=== PATIENT | male | born 1965 ===

== ENCOUNTER → 2017-07-04 | Outpatient (CLI) | payer MEDICARE, MEDICAID ==
[2014-07-21 14:17] VITALS: BMI 47.2
[~2017-07-04] MED LIST: ALBU8.5H IH; CEPH-13 PO; CYCL10TA29 PO; GLIP-152 PO; HYDR-385 PO; HYDR-4305 PO; INDO75CA PO; METF-420 PO; NAPR-724 PO; PROP80CA3 PO; TRAZ-163 PO
[2017-07-04 10:07] LABS: LDL CHOLESTEROL 108 mg/dl
== END ==
LOC: LAB 09:04
PROVIDERS: ATTEND Nurse Practitioner Psychiatric/Mental Health
DX: E13.65 Other specified diabetes mellitus with hyperglycemia (principal); E78.5 Hyperlipidemia, unspecified
CPT/HCPCS: 36415; 82040; 82247; 82310; 82374; 82435; 82465; 82565; 82947; 83036; 83718; 84075; 84132; 84155; 84295; 84450; 84460; 84478; 84520

== ENCOUNTER 2017-07-24 03:34 | Day surgery (SDC) | payer MEDICARE, MEDICAID ==
[2014-07-21 14:17] VITALS: Ht 182.9 cm; Wt 153.8 kg
[~2017-07-24] VITALS: Ht 182.9 cm; Wt 153.8 kg
[~2017-07-24 03:34] MED LIST changes: -NAPR-724 PO; +NAPR500T31 PO
--- NOTE | 2017-07-24 06:37 | Post Operative Progress Note ---
Post Operative Progress Note Date: Jul 24, 2017 Time: 10:19 Surgeon: erika Anesthesia: dr meyers Pre-Op Diagnosis: screening colonoscopy Post-Op Diagnosis: normal colonoscopy Procedure(s): colonoscopy JUSTIN MITCHELL MD Jul 24, 2017 06:37
--- NOTE | 2017-07-24 06:37 | Short(Outpt) Discharge Summary ---
Discharge Summary Reason for Hosp/Final Diag: (1) Encounter for screening colonoscopy Hospital Course & Plan: colonoscopy was normal Departure Discharge to: Home Discharge Instructions Home Meds Reported Medications Hydrocodone Bit/Acetaminophen (NORCO 10-325 TABLET) 1 Each Tablet, 1 EACH PO Q4- 6H Y for PAIN 07/18/17 Glipizide (GLIPIZIDE) 5 Mg Tablet, 10 MG PO BID 04/13/15 Propranolol HCl (Inderal Xl) 80 Mg Cap.er.24h, 1 CAP PO BID 11/11/14 Metformin Hcl (METFORMIN HCL) 1,000 Mg Tablet, 1 TAB PO BID, TAB 11/11/14 Discontinued Reported Medications Cyclobenzaprine Hcl (CYCLOBENZAPRINE HCL) 10 Mg Tablet, 10 MG PO HS Y for SLEEP , #9 TAB 11/11/14 Discontinued Scripts Naproxen (NAPROXEN) 500 Mg Tablet, 500 MG PO BID for 7 Days, #14 TAB Prov:ISSAC GAN MD 02/16/17 Diet: Regular Activity: As Tolerated JUSTIN MITCHELL MD Jul 24, 2017 06:37
[2017-07-24 07:26] VITALS: BP 142/86
[2017-07-24] MEDS ORDERED: PROPOFOL EMUL(*) 10MG/ML 20 ML 20 ML ONE (07:26)
[2017-07-24] MEDS ORDERED: MIDAZOLAM 2 MG/2 ML VIAL IVP PRN (09:00)
[2017-07-24] MEDS ORDERED: NORMOSOL R SOLN(*) 1000 ML BAG 1,000 ML IV PRN (09:00)
[2017-07-24] MEDS ORDERED: LIDOCAINE/SOD BICARB 8.4% SYR ID ONE (09:00)
[2017-07-24 10:15] VITALS: BP 113/77
[2017-07-24 10:30] VITALS: BP 127/75
[2017-07-24 10:41] VITALS: BP 117/68
[2017-07-24 10:45] VITALS: BP 136/75
--- NOTE | 2017-07-24 15:53 | OPERATIVE REPORT 1 ---
EVENT DATE: July 24, 2017 SURGEON: Mayo Shea MD ANESTHESIOLOGIST: Vinod Miller MD ANESTHESIA: Sedation. PREOPERATIVE DIAGNOSIS Screening colonoscopy. POSTOPERATIVE DIAGNOSIS Normal-appearing colonoscopic examination. DESCRIPTION OF PROCEDURE The patient was placed in the left lateral decubitus position and given intravenous sedation. The rectal exam was unremarkable. A flexible colonoscope was inserted and advanced to the cecum. He had an excellent bowel prep. Ileocecal valve and base of the cecum were identified. The scope was slowly withdrawn. Care was taken to look behind the haustral folds. No abnormalities were noted in the cecum, right colon, transverse, descending, or sigmoid colon. The rectum was normal. The scope was retroflexed, and that appeared to be normal. The patient will require a repeat colonoscopy in 10 years. KALEIGH
== END 2017-07-24 10:55 | disposition home or self-care (01) ==
LOC: OR 03:34
PROVIDERS: ATTEND Surgery
DX: Z12.11 Encounter for screening for malignant neoplasm of colon (principal); E11.9 Type 2 diabetes mellitus without complications
CPT/HCPCS: 00812; 36416; 82948; G0121; J2704

== ENCOUNTER 2017-10-27 00:37 | Emergency (ER) | payer MEDICAID, MEDICARE ==
[2014-07-21 14:17] VITALS: Wt 158.8 kg
[~2017-10-27 00:37] MED LIST changes: -METF-420 PO; +METF-421 PO
--- NOTE | 2017-10-27 00:42 | ER Report ---
History and Physical Time Seen By MD: 00:41 HPI/ROS CHIEF COMPLAINT: Abdominal pain HISTORY OF PRESENT ILLNESS: 52-year-old male presents ambulatory to the ER complaining of severe nausea. He's got right upper quadrant abdominal pain. He ate a cheeseburger at 4 PM and then developed pain shortly thereafter. He's had no fever or chills. He's had no abdominal surgeries previously. Patient notes one episode of diarrhea. He denies dysuria. REVIEW OF SYSTEMS: Respiratory: No cough, no dyspnea. Cardiovascular: No chest pain, no palpitations. Gastrointestinal: As above Musculoskeletal: No back pain. Allergies: Coded Allergies: No Known Drug Allergies (Unverified , 10/27/17) Home Meds Active Scripts Ondansetron Hcl (ZOFRAN) 4 Mg Tablet, 4 MG PO Q6H Y for NAUSEA/VOMITING, #10 Prov:CHARLES SANCHEZ DO 10/27/17 Hydrocodone Bit/Acetaminophen (NORCO 5-325 TABLET) 1 Each Tablet, 1 EACH PO Q4H Y for PAIN, #12 TAB Prov:CHARLES SANCHEZ DO 10/27/17 Reported Medications Propranolol HCl (Inderal Xl) 80 Mg Cap.er.24h 10/27/17 Glipizide (GLIPIZIDE) 5 Mg Tablet, 20 MG PO BID 04/13/15 Metformin Hcl (METFORMIN HCL) 1,000 Mg Tablet, 1 TAB PO BID, TAB 11/11/14 Discontinued Reported Medications Hydrocodone Bit/Acetaminophen (NORCO 10-325 TABLET) 1 Each Tablet, 1 EACH PO Q4- 6H Y for PAIN 07/18/17 Propranolol HCl (Inderal Xl) 80 Mg Cap.er.24h, 1 CAP PO BID 11/11/14 Reviewed Nurses Notes: Yes Old Medical Records Reviewed: Yes Hx Smoking: No Smoking Status: Never Smoker Exposure to Second Hand Smoke?: No Hx Substance Use Disorder: No Hx Alcohol Use: No Constitutional Vital Sign - Last 24 Hours 10/27/17 10/27/17 10/27/17 10/27/17 00:42 00:45 00:55 01:00 Temp 96.8 Pulse 73 73 70 Resp 20 B/P (MAP) 151/74 151/78 (102) Pulse Ox 92 93 93 O2 Delivery Room Air 6/4/18 6/4/18 6/4/18 6/4/18 01:15 01:25 01:35 01:45 Pulse 67 69 68 66 Pulse Ox 91 91 90 90 10/27/17 01:54 Pulse 80 Resp 16 B/P (MAP) 148/89 (108) Pulse Ox 93 O2 Delivery Room Air Physical Exam General Appearance: The patient is alert, has no immediate need for airway protection and no current signs of toxicity. Vital signs stable, afebrile, pulse ox normal HEENT: Pupils equal and round no injection. Oropharynx without redness or exudate, mucous. Membranes are moist Respiratory: Chest is non tender, lungs are clear to auscultation. Cardiac: regular rate and rhythm Gastrointestinal: Abdomen is soft, mild epigastric tenderness, no masses, bowel sounds normal. Musculoskeletal: Neck: Neck is supple and non tender. Extremities have full range of motion and are non tender. Skin: No rashes or lesions. DIFFERENTIAL DIAGNOSIS: After history and physical exam differential diagnosis was considered for abdominal pain including but not limited to appendicitis, cholecystitis, gastritis and urinary tract infection. Medical Decision Making Data Points Result Diagram: 10/27/17 0109 10/27/17 0128 Laboratory Hematology Test 10/27/17 00:42 10/27/17 01:09 10/27/17 01:28 Urine Color Yellow Urine Clarity Clear Urine pH 5.0 pH (4.8-9.5) Urine Specific [place] 1.016 Urine Protein Negative mg/dL (NEGATIVE) Urine Glucose (UA) 500 mg/dL (NEGATIVE) Urine Ketones Trace mg/dL (NEGATIVE) Urine Blood Negative (NEGATIVE) Urine Nitrite Negative (NEGATIVE) Urine Bilirubin Negative (NEGATIVE) Urine Urobilinogen Negative mg/dL (0.2-1.9) Urine Leukocyte Esterase Negative (NEGATIVE) Urine RBC <1 /HPF (0-2/HPF) Urine WBC <1 /HPF (0-5/HPF) Urine Squamous Epithelial Cells Few /LPF (</=FEW) Urine Bacteria Negative /HPF (NONE-FEW) Urine Mucus Few /HPF (NONE-FEW) Red Blood Count 5.77 M/uL (4.00-5.60) Mean Corpuscular Volume 88.3 fL (80.0-96.0) Mean Corpuscular Hemoglobin 30.6 pg (26.0-33.0) Mean Corpuscular Hemoglobin Concent 34.6 g/dL (32.0-36.0) Red Cell Distribution Width 14.4 % (11.5-14.5) Mean Platelet Volume 7.4 fL (7.2-11.1) Neutrophils (%) (Auto) 63.7 % (39.4-72.5) Lymphocytes (%) (Auto) 25.1 % (17.6-49.6) Monocytes (%) (Auto) 8.3 % (4.1-12.4) Eosinophils (%) (Auto) 1.9 % (0.4-6.7) Basophils (%) (Auto) 1.0 % (0.3-1.4) Nucleated RBC Relative Count (auto) 0.2 /100WBC Neutrophils # (Auto) 7.8 K/uL (2.0-7.4) Lymphocytes # (Auto) 3.1 K/uL (1.3-3.6) Monocytes # (Auto) 1.0 K/uL (0.3-1.0) Eosinophils # (Auto) 0.2 K/uL (0.0-0.5) Basophils # (Auto) 0.1 K/uL (0.0-0.1) Nucleated RBC Absolute Count (auto) 0.02 K/uL Sodium Level 137 mmol/L (137-145) Potassium Level 3.9 mmol/L (3.5-5.0) Chloride Level 100 mmol/L (98-107) Carbon Dioxide Level 25 mmol/L (22-30) Blood Urea Nitrogen 19 mg/dl (9-21) Creatinine 0.90 mg/dl (0.66-1.25) Glomerular Filtration Rate Calc > 60.0 Random Glucose 214 mg/dl (75-110) Calcium Level 9.3 mg/dl (8.4-10.2) Total Bilirubin 0.7 mg/dl (0.2-1.3) Aspartate Amino Transf (AST/SGOT) 23 U/L (0-35) Alanine Aminotransferase (ALT/SGPT) 41 U/L (0-56) Alkaline Phosphatase 71 U/L (0-126) Total Protein 6.7 gm/dl (6.3-8.2) Albumin 3.6 g/dl (3.5-5.0) Amylase Level 90 U/L (0-110) Lipase 239 U/L (23-300) Chemistry Test 10/27/17 00:42 10/27/17 01:09 10/27/17 01:28 Urine Color Yellow Urine Clarity Clear Urine pH 5.0 pH (4.8-9.5) Urine Specific [place] 1.016 Urine Protein Negative mg/dL (NEGATIVE) Urine Glucose (UA) 500 mg/dL (NEGATIVE) Urine Ketones Trace mg/dL (NEGATIVE) Urine Blood Negative (NEGATIVE) Urine Nitrite Negative (NEGATIVE) Urine Bilirubin Negative (NEGATIVE) Urine Urobilinogen Negative mg/dL (0.2-1.9) Urine Leukocyte Esterase Negative (NEGATIVE) Urine RBC <1 /HPF (0-2/HPF) Urine WBC <1 /HPF (0-5/HPF) Urine Squamous Epithelial Cells Few /LPF (</=FEW) Urine Bacteria Negative /HPF (NONE-FEW) Urine Mucus Few /HPF (NONE-FEW) White Blood Count 12.2 k/uL (4.5-11.0) Red Blood Count 5.77 M/uL (4.00-5.60) Hemoglobin 17.7 g/dL (14.0-18.0) Hematocrit 51.0 % (42.0-52.0) Mean Corpuscular Volume 88.3 fL (80.0-96.0) Mean Corpuscular Hemoglobin 30.6 pg (26.0-33.0) Mean Corpuscular Hemoglobin Concent 34.6 g/dL (32.0-36.0) Red Cell Distribution Width 14.4 % (11.5-14.5) Platelet Count 196 K/uL (150-450) Mean Platelet Volume 7.4 fL (7.2-11.1) Neutrophils (%) (Auto) 63.7 % (39.4-72.5) Lymphocytes (%) (Auto) 25.1 % (17.6-49.6) Monocytes (%) (Auto) 8.3 % (4.1-12.4) Eosinophils (%) (Auto) 1.9 % (0.4-6.7) Basophils (%) (Auto) 1.0 % (0.3-1.4) Nucleated RBC Relative Count (auto) 0.2 /100WBC Neutrophils # (Auto) 7.8 K/uL (2.0-7.4) Lymphocytes # (Auto) 3.1 K/uL (1.3-3.6) Monocytes # (Auto) 1.0 K/uL (0.3-1.0) Eosinophils # (Auto) 0.2 K/uL (0.0-0.5) Basophils # (Auto) 0.1 K/uL (0.0-0.1) Nucleated RBC Absolute Count (auto) 0.02 K/uL Glomerular Filtration Rate Calc > 60.0 Calcium Level 9.3 mg/dl (8.4-10.2) Total Bilirubin 0.7 mg/dl (0.2-1.3) Aspartate Amino Transf (AST/SGOT) 23 U/L (0-35) Alanine Aminotransferase (ALT/SGPT) 41 U/L (0-56) Alkaline Phosphatase 71 U/L (0-126) Total Protein 6.7 gm/dl (6.3-8.2) Albumin 3.6 g/dl (3.5-5.0) Amylase Level 90 U/L (0-110) Lipase 239 U/L (23-300) Urinalysis Test 10/27/17 00:42 Urine Color Yellow Urine Clarity Clear Urine pH 5.0 pH (4.8-9.5) Urine Specific [place] 1.016 Urine Protein Negative mg/dL (NEGATIVE) Urine Glucose (UA) 500 mg/dL (NEGATIVE) Urine Ketones Trace mg/dL (NEGATIVE) Urine Blood Negative (NEGATIVE) Urine Nitrite Negative (NEGATIVE) Urine Bilirubin Negative (NEGATIVE) Urine Urobilinogen Negative mg/dL (0.2-1.9) Urine Leukocyte Esterase Negative (NEGATIVE) Urine RBC <1 /HPF (0-2/HPF) Urine WBC <1 /HPF (0-5/HPF) Urine Squamous Epithelial Cells Few /LPF (</=FEW) Urine Bacteria Negative /HPF (NONE-FEW) Urine Mucus Few /HPF (NONE-FEW) ED Course/Re-evaluation Clinical Indication for ER IV: Hydration, IV Access ED Course Patient was admitted to an examination room. H&P was done. The differential diagnosis was considered. On clinical examination. Patient has a benign nonsurgical abdomen. He has mild epigastric tenderness. Patient was treated with IV fluid hydration, Zofran and Toradol. He feels better. His nausea resolved. His diagnostic laboratory studies are unremarkable. Patient's advised a clear liquid diet for 24 hours. He is given prescriptions for Lortab and Zofran. Patient advised to follow-up with primary care if unimproved in 3- 5 days. He may need an ultrasound or a HIDA scan. Decision to Disposition Date: Oct 27, 2017 Decision to Disposition Time: 01:51 Depart Departure Latest Vital Signs Vital Signs Date Time Temp Pulse Resp B/P (MAP) Pulse Ox O2 Delivery O2 Flow Rate FiO2 10/27/17 01:54 80 16 148/89 (108) 93 Room Air 10/27/17 00:42 96.8 Impression: Primary Impression: Abdominal pain Additional Impression: Type II diabetes mellitus Condition: Improved Disposition: HOME OR SELF-CARE Referrals: SANCHEZ DOVE APRN (PCP) New Scripts Ondansetron Hcl (ZOFRAN) 4 Mg Tablet 4 MG PO Q6H Y for NAUSEA/VOMITING, #10 Prov: CHARLES SANCHEZ DO 10/27/17 Hydrocodone Bit/Acetaminophen (NORCO 5-325 TABLET) 1 Each Tablet 1 EACH PO Q4H Y for PAIN, #12 TAB Prov: CHARLES SANCHEZ DO 10/27/17 Patient Instructions: Abdominal Pain (ED), Clear Liquid Diet (ED) Additional Instructions: Follow-up with your primary care if unimproved in 3-5 days. You may need an ultrasound gallbladder Problem Qualifiers Primary Impression: Abdominal pain Abdominal location: upper abdomen, unspecified Qualified Codes: R10.10 - Upper abdominal pain, unspecified Additional Impression: Type II diabetes mellitus Diabetes mellitus senior care insulin use: unspecified exterminator insulin use status Diabetes mellitus complication status: without complication Qualified Codes: E11.9 - Type 2 diabetes mellitus without complications CHARLES SANCHEZ DO Oct 27, 2017 00:42
[2017-10-27] MEDS ORDERED: PROP80CA3 (00:49)
[2017-10-27] MEDS ORDERED: NS(*) 0.9% 1000 ML BAG 1,000 ML IV ONE (00:52)
[2017-10-27] MEDS ORDERED: KETOROLAC 30 MG/ML VIAL IVP ONE (00:55)
[2017-10-27] MEDS ORDERED: ONDANSETRON 4 MG/2 ML VIAL IVP ONE (00:55)
[2017-10-27 01:39] LABS: PLATELET COUNT, AUTOMATED 196 K/uL (150-450)
[2017-10-27] MEDS ORDERED: ACET/HYDROC 5/325MG TH ER ONLY 2 TAB/BOTTLE PO ONE (01:50)
[2017-10-27] MEDS ORDERED: ONDANSETRON 4 MG ODT TH SL ONE (01:50)
[2017-10-27] MEDS ORDERED: HYDR-4309 PO (01:53)
[2017-10-27] MEDS ORDERED: ONDA4TAB97 PO (01:53)
[2017-10-27 01:54] VITALS: BP 148/89
== END 2017-10-27 02:08 | disposition home or self-care (01) ==
LOC: ER 00:50
DX: R10.11 Right upper quadrant pain (principal); E11.9 Type 2 diabetes mellitus without complications
CPT/HCPCS: 36415; 81001; 82150; 83690; 85025; 96361; 96374; 96375; 99284; J1885; J2405; J7030; Q0162; 82040; 82247; 82310; 82374; 82435; 82565; 82947; 84075; 84132; 84155; 84295; 84450; 84460; 84520; 99283; S0119

== ENCOUNTER 2017-11-03 11:04 | Emergency (ER) | payer MEDICARE ==
[2014-07-21 14:17] VITALS: Wt 158.8 kg
[~2017-11-03 11:04] MED LIST changes: +HYDR-4309 PO; +ONDA4TAB97 PO; +PROP80CA3
[2017-11-03 11:12] VITALS: BP 153/86
--- NOTE | 2017-11-03 11:16 | ER Report ---
History and Physical Time Seen By MD: 11:13 Hx. of Stated Complaint: Pt reports RUQ side pain. HPI/ROS CHIEF COMPLAINT: Right lower quadrant pain HISTORY OF PRESENT ILLNESS: This is a 52-year-old male who presents to the emergency department for right lower quadrant pain. Patient states that about 4 days ago he developed some right lower quadrant pain, radiating to the lower back. Patient denies dysuria, difficulties with bowel movements. Patient states that the pain has been intermittent, achy with occasional sharp pains. No blood in the urine, no nausea or vomiting. No chest pain or shortness of breath. No rashes. REVIEW OF SYSTEMS: Constitutional: No fever, no chills. Eyes: No discharge. ENT: No sore throat. Cardiovascular: No chest pain, no palpitations. Respiratory: No cough, no shortness of breath. Gastrointestinal: As above. Genitourinary: No hematuria. Musculoskeletal: No back pain. Skin: No rashes. Neurological: No headache. Allergies: Coded Allergies: No Known Drug Allergies (Unverified , 11/03/17) Home Meds Active Scripts Acyclovir (ACYCLOVIR) 800 Mg Tablet, 800 MG PO 5XD for 7 Days, #35 TAB 0 Refills Prov:KRYSTYNA VELÁZQUEZ DRAIN TECHNICIAN-BC 11/03/17 Ondansetron Hcl (ZOFRAN) 4 Mg Tablet, 4 MG PO Q6H Y for NAUSEA/VOMITING, #10 Prov:CHARLES SANCHEZ DO 10/27/17 Hydrocodone Bit/Acetaminophen (NORCO 5-325 TABLET) 1 Each Tablet, 1 EACH PO Q4H Y for PAIN, #12 TAB Prov:CHARLES SANCHEZ DO 10/27/17 Reported Medications Propranolol HCl (Inderal Xl) 80 Mg Cap.er.24h 10/27/17 Glipizide (GLIPIZIDE) 5 Mg Tablet, 20 MG PO BID 04/13/15 Metformin Hcl (METFORMIN HCL) 1,000 Mg Tablet, 1 TAB PO BID, TAB 11/11/14 Discontinued Reported Medications Hydrocodone Bit/Acetaminophen (NORCO 10-325 TABLET) 1 Each Tablet, 1 EACH PO Q4- 6H Y for PAIN 07/18/17 Propranolol HCl (Inderal Xl) 80 Mg Cap.er.24h, 1 CAP PO BID 11/11/14 Past Medical/Surgical History Patient has a past medical and surgical history of hypertension, torn rotator cuff surgery, arthritis, back fracture, neck, knee and ankle injuries, chronic back pain, wears glasses, pon-[id number]-[id number] diabetic, tonsillectomy. Reviewed Nurses Notes: Yes Hx Smoking: No Smoking Status: Never Smoker Exposure to Second Hand Smoke?: No Hx Substance Use Disorder: No Hx Alcohol Use: No Constitutional Vital Sign - Last 24 Hours 11/03/17 11/03/17 11/03/17 11/03/17 11:10 11:12 11:19 11:34 Temp 97.6 Pulse 72 69 64 Resp 14 B/P (MAP) 153/86 153/86 (108) Pulse Ox 90 94 93 O2 Delivery Room Air 11/03/17 11/03/17 11/03/17 11/03/17 11:49 12:19 12:34 12:49 Pulse 68 65 65 68 Pulse Ox 93 92 92 91 11/03/17 11/03/17 11/03/17 11/03/17 13:05 13:20 13:35 13:50 Pulse 70 64 65 68 Pulse Ox 92 92 92 91 Intake and Output 11/03/17 11/03/17 11/04/17 15:00 23:00 07:00 Intake Total 1000 ml Balance 1000 ml Physical Exam General Appearance: The patient is alert, has no immediate need for airway protection and no signs of toxicity. Eyes: Pupils equal and round no pallor or injection. ENT, Mouth: Mucous membranes are moist. Respiratory: There are no retractions, lungs are clear to auscultation. Cardiovascular: Regular rate and rhythm, no murmurs, clicks or rubs. Gastrointestinal: Abdomen is very round, soft, tender, to the right mid abdomen with light touch, right CVA tenderness, no masses, bowel sounds normal. Neurological: Alert and oriented 4. Moving all 70s. Following all commands. No focal neuro deficits. Skin: Warm and dry, no rashes. Musculoskeletal: Neck is supple non tender. Extremities are nontender, nonswollen and have full range of motion. DIFFERENTIAL DIAGNOSIS: After history and physical exam differential diagnosis was considered for abdominal pain including but not limited to appendicitis, cholecystitis, gastritis and urinary tract infection. Medical Decision Making Data Points Result Diagram: 11/03/17 1135 11/03/17 1135 Laboratory Hematology Test 6/11/18 11:35 Red Blood Count 6.01 M/uL (4.00-5.60) Mean Corpuscular Volume 88.6 fL (80.0-96.0) Mean Corpuscular Hemoglobin 31.0 pg (26.0-33.0) Mean Corpuscular Hemoglobin Concent 35.0 g/dL (32.0-36.0) Red Cell Distribution Width 14.5 % (11.5-14.5) Mean Platelet Volume 7.3 fL (7.2-11.1) Neutrophils (%) (Auto) 70.2 % (39.4-72.5) Lymphocytes (%) (Auto) 20.3 % (17.6-49.6) Monocytes (%) (Auto) 7.5 % (4.1-12.4) Eosinophils (%) (Auto) 1.1 % (0.4-6.7) Basophils (%) (Auto) 0.9 % (0.3-1.4) Nucleated RBC Relative Count (auto) 0.0 /100WBC Neutrophils # (Auto) 9.2 K/uL (2.0-7.4) Lymphocytes # (Auto) 2.7 K/uL (1.3-3.6) Monocytes # (Auto) 1.0 K/uL (0.3-1.0) Eosinophils # (Auto) 0.1 K/uL (0.0-0.5) Basophils # (Auto) 0.1 K/uL (0.0-0.1) Nucleated RBC Absolute Count (auto) 0.00 K/uL Urine Color Yellow Urine Clarity Clear Urine pH 5.0 pH (4.8-9.5) Urine Specific [place] 1.017 Urine Protein Negative mg/dL (NEGATIVE) Urine Glucose (UA) 500 mg/dL (NEGATIVE) Urine Ketones Trace mg/dL (NEGATIVE) Urine Blood Negative (NEGATIVE) Urine Nitrite Negative (NEGATIVE) Urine Bilirubin Negative (NEGATIVE) Urine Urobilinogen Negative mg/dL (0.2-1.9) Urine Leukocyte Esterase Negative (NEGATIVE) Urine RBC None /HPF (0-2/HPF) Urine WBC None /HPF (0-5/HPF) Urine Squamous Epithelial Cells None /LPF (</=FEW) Urine Bacteria Negative /HPF (NONE-FEW) Urine Mucus None /HPF (NONE-FEW) Sodium Level 138 mmol/L (137-145) Potassium Level 4.3 mmol/L (3.5-5.0) Chloride Level 98 mmol/L (98-107) Carbon Dioxide Level 24 mmol/L (22-30) Blood Urea Nitrogen 18 mg/dl (9-21) Creatinine 1.00 mg/dl (0.66-1.25) Glomerular Filtration Rate Calc > 60.0 Random Glucose 245 mg/dl (75-110) Calcium Level 9.6 mg/dl (8.4-10.2) Total Bilirubin 0.8 mg/dl (0.2-1.3) Aspartate Amino Transf (AST/SGOT) 27 U/L (0-35) Alanine Aminotransferase (ALT/SGPT) 42 U/L (0-56) Alkaline Phosphatase 79 U/L (0-126) Troponin I < 0.012 ng/ml Total Protein 7.6 gm/dl (6.3-8.2) Albumin 4.0 g/dl (3.5-5.0) Chemistry Test 11/03/17 11:35 White Blood Count 13.1 k/uL (4.5-11.0) Red Blood Count 6.01 M/uL (4.00-5.60) Hemoglobin 18.6 g/dL (14.0-18.0) Hematocrit 53.3 % (42.0-52.0) Mean Corpuscular Volume 88.6 fL (80.0-96.0) Mean Corpuscular Hemoglobin 31.0 pg (26.0-33.0) Mean Corpuscular Hemoglobin Concent 35.0 g/dL (32.0-36.0) Red Cell Distribution Width 14.5 % (11.5-14.5) Platelet Count 237 K/uL (150-450) Mean Platelet Volume 7.3 fL (7.2-11.1) Neutrophils (%) (Auto) 70.2 % (39.4-72.5) Lymphocytes (%) (Auto) 20.3 % (17.6-49.6) Monocytes (%) (Auto) 7.5 % (4.1-12.4) Eosinophils (%) (Auto) 1.1 % (0.4-6.7) Basophils (%) (Auto) 0.9 % (0.3-1.4) Nucleated RBC Relative Count (auto) 0.0 /100WBC Neutrophils # (Auto) 9.2 K/uL (2.0-7.4) Lymphocytes # (Auto) 2.7 K/uL (1.3-3.6) Monocytes # (Auto) 1.0 K/uL (0.3-1.0) Eosinophils # (Auto) 0.1 K/uL (0.0-0.5) Basophils # (Auto) 0.1 K/uL (0.0-0.1) Nucleated RBC Absolute Count (auto) 0.00 K/uL Urine Color Yellow Urine Clarity Clear Urine pH 5.0 pH (4.8-9.5) Urine Specific [place] 1.017 Urine Protein Negative mg/dL (NEGATIVE) Urine Glucose (UA) 500 mg/dL (NEGATIVE) Urine Ketones Trace mg/dL (NEGATIVE) Urine Blood Negative (NEGATIVE) Urine Nitrite Negative (NEGATIVE) Urine Bilirubin Negative (NEGATIVE) Urine Urobilinogen Negative mg/dL (0.2-1.9) Urine Leukocyte Esterase Negative (NEGATIVE) Urine RBC None /HPF (0-2/HPF) Urine WBC None /HPF (0-5/HPF) Urine Squamous Epithelial Cells None /LPF (</=FEW) Urine Bacteria Negative /HPF (NONE-FEW) Urine Mucus None /HPF (NONE-FEW) Glomerular Filtration Rate Calc > 60.0 Calcium Level 9.6 mg/dl (8.4-10.2) Total Bilirubin 0.8 mg/dl (0.2-1.3) Aspartate Amino Transf (AST/SGOT) 27 U/L (0-35) Alanine Aminotransferase (ALT/SGPT) 42 U/L (0-56) Alkaline Phosphatase 79 U/L (0-126) Troponin I < 0.012 ng/ml Total Protein 7.6 gm/dl (6.3-8.2) Albumin 4.0 g/dl (3.5-5.0) Urinalysis Test 11/03/17 11:35 Urine Color Yellow Urine Clarity Clear Urine pH 5.0 pH (4.8-9.5) Urine Specific [place] 1.017 Urine Protein Negative mg/dL (NEGATIVE) Urine Glucose (UA) 500 mg/dL (NEGATIVE) Urine Ketones Trace mg/dL (NEGATIVE) Urine Blood Negative (NEGATIVE) Urine Nitrite Negative (NEGATIVE) Urine Bilirubin Negative (NEGATIVE) Urine Urobilinogen Negative mg/dL (0.2-1.9) Urine Leukocyte Esterase Negative (NEGATIVE) Urine RBC None /HPF (0-2/HPF) Urine WBC None /HPF (0-5/HPF) Urine Squamous Epithelial Cells None /LPF (</=FEW) Urine Bacteria Negative /HPF (NONE-FEW) Urine Mucus None /HPF (NONE-FEW) EKG/Imaging EKG Interpretation 12 lead EKG: Time of EK. Rhythm: Normal sinus rhythm, ventricular rate 71 bpm. [place]: normal QRS: normal ST segments: No ST depression or elevation identified. Poor T-wave progression. ED Course/Re-evaluation Clinical Indication for ER IV: Hydration, IV Access ED Course Patient was admitted to a room. A history and physical were obtained. Differential diagnoses were considered. An IV was started. CBC, CMP, troponin, EKG, UA were obtained. Slight elevation in with blood cell count at 13.1, no left shift, otherwise unremarkable, chemistry showing blood sugar 245. Patient states that his blood sugars are much improved they used to be the 400 to 500s. Negative troponin, EKG unremarkable. Negative UA. CT of the abdomen pelvis negative for kidney stone, there is a gallstone present but no inflammation or concerns for infection. Two-view chest x-ray negative for a cardio pulmonary process. Patient was given a 1 L normal saline bolus. 30 mg IV Toradol with little relief. I did review these results with the patient did tell him I do not have a clear explanation as to why he is having this right-sided pain however I am concerned that he may have an underlying shingles infection, I did tell the patient that we can trial acyclovir [facility] to resolve some of his symptomology. Patient is in agreement with this plan of care. Patient was discharged with a prescription for acyclovir. Patient has no other questions or concerns, patient will be following up today with his primary care provider at 3 :00. Patient was instructed to return to emergency department for any concerns worsening symptoms. Decision to Disposition Date: Nov 03, 2017 Decision to Disposition Time: 13:52 Depart Departure Latest Vital Signs Vital Signs Date Time Temp Pulse Resp B/P (MAP) Pulse Ox O2 Delivery O2 Flow Rate FiO2 11/03/17 13:50 68 91 11/03/17 11:12 153/86 (108) 11/03/17 11:10 97.6 14 Room Air Impression: Primary Impression: Right-sided abdominal pain of unknown cause Condition: Improved Disposition: HOME OR SELF-CARE Referrals: SANCHEZ DOVE APRN (PCP) JAKI LEON MD 1 Week New Scripts Acyclovir (ACYCLOVIR) 800 Mg Tablet 800 MG PO 5XD for 7 Days, #35 TAB 0 Refills Prov: KRYSTYNA VELÁZQUEZ 11/03/17 Patient Instructions: Shingles (ED) Additional Instructions: Drink plenty of water. Get plenty of rest. No signs of Pneumonia. No kidney stones. Although I do not have a clear reason as to why you are having this right sided abdominal pain, as the gallbladder is not showing signs of inflammation or infection, I would recommend trying a coarse of Acyclovir to see if this helps as this could be an underlying shingles infection. Take the acyclovir as directed. Talk to your PCP about shigles and consider discussing trailing Lantus for your diabetes. Return to the ED for any other concerns or worsening symptoms. KRYSTYNA VELÁZQUEZ DRAIN TECHNICIAN-BC Nov 03, 2017 11:16
[2017-11-03] MEDS ORDERED: NS(*) 0.9% 1000 ML BAG 1,000 ML IV ONE (11:25)
[2017-11-03] MEDS ORDERED: IOPAMIDOL 76% 100 ML INFUS BTL 100 ML ONE (11:41)
[2017-11-03] MEDS ORDERED: MAG HYD/AL HYD/SIMETH 30ML UDC PO ONE (11:45)
[2017-11-03] MEDS ORDERED: LIDOCAINE 2% VISC SLN 15ML UDC PO ONE (11:45)
[2017-11-03 11:49] LABS: PLATELET COUNT, AUTOMATED 237 K/uL (150-450)
--- NOTE | 2017-11-03 12:08 | EKG ---
FACILITY: [facility] PATIENT NAME: STIVEN SEGUNDO : [id number] MR: [id number]: [id number] EXAM DATE: ORDERING PHYSICIAN: KRYSTYNA VELÁZQUEZ TECHNOLOGIST: ASHISH Guajardo Reason : Blood Pressure : / mmHG Vent. Rate : 071 BPM Atrial Rate : 071 BPM P-R Int : 154 ms QRS Dur : 088 ms QT Int : 406 ms P-R-T Axes : 003 045 025 degrees QTc Int : 441 ms Sinus rhythm Artifact in several leads - repeat if needed Confirmed by SABRINA DE LEON ([id number]) on 11/04/2017 5:59:49 AM Referred By: ANT Confirmed By:SABRINA DE LEON
--- NOTE | 2017-11-03 12:51 | RADIOLOGY IMAGING REPORT ---
FACILITY: [facility] PATIENT NAME: Sundeep Florentino : 1965 MR: [id number] V: [id number] EXAM DATE: ORDERING PHYSICIAN: KRYSTYNA VELÁZQUEZ TECHNOLOGIST: Location: [facility] Patient: Sundeep Florentino : 1965 Visit/Account:[id number] Date of Sevice: 11/03/2017 CT abdomen and pelvis with IV contrast Indication: Right upper abdominal pain. Comparison: None available. . Technique: Axial CT images were obtained through the abdomen and pelvis during injection of nonioni c iodinated intravenous contrast. Reformatted coronal and sagittal images were also obtained. One of the following dose optimization techniques was utilized in the performance of this exam: Autom ated exposure control; adjustment of the mA and/or kV according to the patient's size; or use of an i terative reconstruction technique. Specific details can be referenced in the facility's radiology C T exam operational policy. Contrast: 100 ml of Isovue-370 IV contrast. Findings: Lower lung perez: The lateral left lower lobe does show a 5 mm pleural-based nodule. As this is less than 6 mm, no further evaluation is necessary. Lung bases are otherwise clear. Liver: The liver appears to be mildly diffusely hypodense. Focal fatty sparing around gallbladder fos sa. No focal lesions are identified. Biliary: The gallbladder shows a 1.4 cm stone within the lumen without other gallbladder or biliary a bnormality. Pancreas: Normal appearance. Spleen: Normal appearance. Adrenal glands: Unremarkable. Kidneys / retroperitoneum: No evidence of nephrolithiasis or hydronephrosis. Both kidneys do show sev eral small peripelvic cyst. The right kidney does show subcentimeter hypodensity which is too small c haracterize and statistically a small cyst. No other discrete renal lesions. Bowel / peritoneum / mesenteries: Visualized gastrointestinal tract, including the appendix, within n ormal limits. The stomach is unremarkable. No free air, free fluid, fluid collections or areas of inflammation. Small umbilical hernia containin g fat. Lymph node assessment: No pathologic adenopathy identified. Pelvic structures: Appear unremarkable. Vessels: Mild atherosclerotic calcifications seen throughout a nonaneurysmal abdominal aorta and bran ches. Incidental note of a retroaortic left renal vein. Musculoskeletal / Body wall: No acute or aggressive osseous abnormality. Degenerative changes of the spine, more prominent the L5-S1 level this level also shows bilateral pars defect without minimal ant erior spondylolisthesis of L5 over S1 of 4.5 mm. IMPRESSION: 1. No acute intra-abdominal abnormality 2. Cholelithiasis. No indication of cholecystitis. 3. Diffusely hypodense liver consistent with fatty infiltration or chronic disease. Some mild focal f atty sparing around gallbladder fossa. No other focal abnormality. 4. Other chronic findings as above. Report Dictated By: Brock Luke at 11/03/2017 12:40 PM Report E-Signed By: Brock Luke at 11/03/2017 12:47 PM WSN:[id number]
[2017-11-03] MEDS ORDERED: KETOROLAC 30 MG/ML VIAL IVP ONE (13:10)
--- NOTE | 2017-11-03 13:32 | RADIOLOGY IMAGING REPORT ---
FACILITY: [facility] [place] PATIENT NAME: Sundeep Florentino : 1965 MR: [id number] V: [id number] EXAM DATE: ORDERING PHYSICIAN: KRYSTYNA VELÁZQUEZ TECHNOLOGIST: Location: [facility] [place] Patient: Sundeep Florentino : 1965 Visit/Account:[id number] Date of Sevice: 11/03/2017 2 VIEWS CHEST INDICATION: Right-sided pain. COMPARISON: 10/31/2014. FINDINGS: Cardiomediastinal silhouette and pulmonary vessels within normal limits. There is no focal infiltrate or lobar consolidation. There is no pneumothorax or pleural effusion. No discrete nodule. Upper abdomen is unremarkable. No acute bony abnormality. IMPRESSION: 1. No acute cardiopulmonary process. Report Dictated By: Brock Luke at 11/03/2017 1:27 PM Report E-Signed By: Brock Luke at 11/03/2017 1:28 PM WSN:[id number]
[2017-11-03] MEDS ORDERED: ACYC800T99 PO (13:55)
== END 2017-11-03 14:13 | disposition home or self-care (01) ==
LOC: ER 11:05
DX: R10.31 Right lower quadrant pain (principal)
CPT/HCPCS: 71046; 74177; 81001; 84484; 85025; 93005; 96361; 96374; 99284; A9270; J1885; J7030; Q9967; 82040; 82247; 82310; 82374; 82435; 82565; 82947; 84075; 84132; 84155; 84295; 84450; 84460; 84520